=== PATIENT | female | born 1955 | race Two or more races ===

== ENCOUNTER 2023-01-19 15:13 | Emergency (ER) | payer OTHER ==
[~2023-01-19] VITALS: Ht 167.6 cm; Wt 60.3 kg
[2023-01-19] MEDS ORDERED: LEVOTHYROXINE88 MCG PO (16:50)
== END 2023-01-19 18:17 | disposition home or self-care (01) ==
LOC: ER 15:13
DX: S52.592A Other fractures of lower end of left radius, initial encounter for closed fracture (principal); V19.3XXA Pedal cyclist (driver) (passenger) injured in unspecified nontraffic accident, initial encounter; Y93.I9 Activity, other involving external motion; Y92.413 State road as the place of occurrence of the external cause

== ENCOUNTER 2023-01-23 08:21 | Outpatient (CLI) | payer OTHER ==
[~2023-01-23 08:21] MED LIST: LEVOTHYROXINE88 MCG PO
== END 2023-01-23 08:26 | disposition home or self-care (01) ==
LOC: RAD 08:21
PROVIDERS: ATTEND Orthopaedic Surgery Hand Surgery
DX: D68.9 Coagulation defect, unspecified (principal)

== ENCOUNTER 2023-01-23 09:23 | Outpatient (CLI) | payer OTHER | END 2023-01-23 09:24 | disposition home or self-care (01) | LOC: LAB 09:23 | PROVIDERS: ATTEND Orthopaedic Surgery Hand Surgery | DX: D68.9 Coagulation defect, unspecified (principal); I10 Essential (primary) hypertension; Z20.822 Contact with and (suspected) exposure to COVID-19 ==

== ENCOUNTER 2023-02-27 10:03 | Outpatient (CLI) | payer OTHER | END 2023-02-27 10:16 | disposition home or self-care (01) | LOC: RAD 10:03 | PROVIDERS: ATTEND Orthopaedic Surgery Hand Surgery | DX: S52.122D Displaced fracture of head of left radius, subsequent encounter for closed fracture with routine healing (principal) ==

== ENCOUNTER 2025-02-19 13:12 | Outpatient (CLI) | payer OTHER | END 2025-02-19 13:16 | disposition home or self-care (01) | LOC: NUCLEAR 13:12 | PROVIDERS: ATTEND Obstetrics & Gynecology | DX: M85.88 Other specified disorders of bone density and structure, other site (principal) ==

== ENCOUNTER 2025-02-19 13:52 | Outpatient (CLI) | payer OTHER | END 2025-02-19 13:56 | disposition home or self-care (01) | LOC: MAMO-SONO 13:52 | PROVIDERS: ATTEND Obstetrics & Gynecology | DX: N64.4 Mastodynia (principal); N64.51 Induration of breast; R92.0 Mammographic microcalcification found on diagnostic imaging of breast; N63.0 Unspecified lump in unspecified breast; Z12.31 Encounter for screening mammogram for malignant neoplasm of breast ==